=== PATIENT | female | born 1995 | race Caucasian/White ===

== ENCOUNTER 2022-01-04 11:01 | Inpatient (IN) ==
[2022-01-04] MEDS ORDERED: Buffered Lidocaine 1% SYRIN 1 ml INTRADERM ONE ×2 (11:46→12:22)
[2022-01-04 12:05] LABS: Urine Appearance Cloudy; Urine Bilirubin Negative (Negative); Urine Blood 3+ (Negative); Urine Color Yellow; Urine Glucose Negative (Negative); Urine Ketones 1+ (Negative); Urine Nitrite Negative (Negative); Urine Protein 2+(100 mg/dL) (Negative); Urine Specific Gravity 1.023 (1.002-1.030); Urine Urobilinogen Negative (Negative)
[2022-01-04] MEDS ORDERED: Lactated Ringers 1000 ml BAG 1,000 ML IV ONE ×2 (12:22→15:56)
[2022-01-04 12:23] LABS: Urine Bacteria Absent (Absent); Urine Red Blood Cell 3+(>10/hpf) (Absent); Urine Squamous Epithelial Cell Present (Absent); Urine White Blood Cell 1+(6-10/hpf) (Absent)
[2022-01-04 12:25] LABS: Urine Benzodiazepine Screen None Detected (None Detect); Urine Cannabinoids Screen None Detected (None Detect); Urine Opiates Screen None Detected (None Detect)
[2022-01-04] MEDS ORDERED: ceFAZolin 2 GM PREMIX 2 GM/50 ML BAG IVPB ONE (12:30)
[2022-01-04 13:24] LABS: ABS Lymphocytes 1.3 10^3/ul (1.0-4.8); ABS Monocytes 0.5 10^3/ul (0-0.8); ABS Neutrophils 10.6 10^3/ul (1.5-7.7); Eosinophil % 0.2 %; Hematocrit 38 % (35-47); Hemoglobin 12.2 g/dL (12.0-16.0); Lymphocyte % 10.3 %; Mean Corpuscular HGB Conc 32 g/dL (31-36); Mean Corpuscular Hemoglobin 27 pg (27-31); Mean Corpuscular Volume 83 fL (80-97); Mean Platelet Volume 9.6 fL (7.4-10.4); Platelet Count 154 10^3/uL (150-450); Red Blood Count 4.56 10^6 /uL (3.70-4.87); Red Cell Distribution Width 15 % (10-15); White Blood Count 12.4 10^3/uL (3.5-10.8)
[2022-01-04 13:48] LABS: Albumin 3.5 g/dL (3.2-5.2); Albumin/Globulin Ratio 1.3 (1-3); Globulin 2.7 g/dL (2-4); Potassium 4.2 mmol/L (3.5-5.0); Total Bilirubin 0.5 mg/dL (0.2-1.0); Total Protein 6.2 g/dL (6.4-8.9); Uric Acid 5.3 mg/dL (2.3-6.6); eGFR CKD-EPI 126.4 (>60)
[2022-01-04] MEDS ORDERED: OBEPIDURAL (200 ML) 200 ML EPIDURAL ONE (15:11)
[2022-01-04] MEDS ORDERED: fentaNYL 100 mcg/2 ml 50 MCG/ML VIAL ONE (15:26)
[2022-01-04] MEDS ORDERED: Bupivacaine 0.25% SDV PF 10 ML VIAL INJ ONE (15:27)
[2022-01-04] MEDS: Lactated Ringers 1000 ml BAG 1,000 ML IV SCH ×2 (15:31→18:10)
[2022-01-04] MEDS ORDERED: Sodium Citrate/Citric Acid LIQ 15 ML UDC PO PRN (15:56)
[2022-01-04] MEDS ORDERED: Lactated Ringers 1000 ml BAG 1,000 ML IV SCH ×2 (16:00→20:00)
[2022-01-04] MEDS ORDERED: OBEPIDURAL (200 ML) 200 ML EPIDURAL SCH (16:00)
[2022-01-04] MEDS ORDERED: Oxytocin in LR 20 UNITS/1,000 ML BAG IVPB ONE (19:07)
[2022-01-04] MEDS: Oxytocin in LR 20 UNITS/1,000 ML BAG IVPB SCH ×2 (19:32→22:25)
[2022-01-04] MEDS ORDERED: Dibucaine 1% OINT 28.35 GM TUBE PR PRN (19:54)
[2022-01-04] MEDS ORDERED: Glycerin ADULT 2.4 gm SUPP PR PRN (19:54)
[2022-01-04] MEDS: Witch Hazel PAD JAR TOPICAL PRN (21:10)
[2022-01-04] MEDS ORDERED: ceFAZolin 1 GM ADVAN 1 GM in NS 0.9% 50 ML 50 ML IVPB SCH (21:30)
[2022-01-04] MEDS ORDERED: Naloxone 0.4 mg VIAL 0.4 mg/ml 1 ml VIAL IV PRN (22:41)
[2022-01-04] MEDS ORDERED: Ondansetron 4 mg VIAL 2 MG/ML 2 ml VIAL IV PRN (22:41)
[2022-01-04] MEDS ORDERED: Prochlorperazine 5 mg/ml 2 ml VIAL (10 mg) IV PRN (22:41)
[2022-01-04] MEDS ORDERED: Metoclopramide 5 MG/ML VIAL (10 mg) IV PRN (22:41)
[2022-01-04] MEDS ORDERED: Lidocaine 1% MPF 5 ML VIAL ONE (23:01)
[2022-01-05 08:44] LABS: ABS Lymphocytes 1.8 10^3/ul (1.0-4.8); ABS Neutrophils 11.9 10^3/ul (1.5-7.7); Eosinophil % 0.1 %; Hematocrit 31 % (35-47); Hemoglobin 9.9 g/dL (12.0-16.0); Lymphocyte % 12.5 %; Mean Corpuscular HGB Conc 32 g/dL (31-36); Mean Corpuscular Hemoglobin 26 pg (27-31); Mean Corpuscular Volume 82 fL (80-97); Mean Platelet Volume 9.1 fL (7.4-10.4); Platelet Count 140 10^3/uL (150-450); Red Blood Count 3.78 10^6 /uL (3.70-4.87); Red Cell Distribution Width 15 % (10-15); White Blood Count 14.7 10^3/uL (3.5-10.8)
[2022-01-06 10:15] VITALS: BP 126/77
[2022-01-06] MEDS: Witch Hazel PAD JAR TOPICAL PRN (10:15)
== END 2022-01-06 17:56 | disposition home or self-care (01) | DRG 560 ==
LOC: MCHOBOUT 11:01 → MCHOB 12:25
PROVIDERS: ADMIT Midwife; ATTEND Obstetrics & Gynecology